=== PATIENT | female | born 1960 | race Caucasian/White ===

== ENCOUNTER → 2020-03-04 | Outpatient (CLI) | payer BC | END | disposition home or self-care (01) | LOC: LABWHC1 09:56 | PROVIDERS: ATTEND Internal Medicine | DX: R50.9 Fever, unspecified (principal); R53.83 Other fatigue; R19.7 Diarrhea, unspecified ==

== ENCOUNTER → 2021-07-22 | Outpatient (CLI) | payer BC ==
--- NOTE | 2021-07-23 13:46 | MM ---
Reason for exam: screening (asymptomatic). Last mammogram was performed 21 years and 7 months ago. History: Patient is postmenopausal and is nulliparous. Family history of breast cancer in sister. Took hormonal contraceptives for 4 years. Physical Findings: A clinical breast exam by your physician is recommended on an annual basis and results should be correlated with mammographic findings. MG Screening Mammo w CAD Bilateral CC and MLO view(s) were taken. Prior study comparison: July 16, 2019, mammogram, performed at [facility]. May 28, 2018, mammogram, performed at [facility]. The breast tissue is heterogeneously dense. This may lower the sensitivity of mammography. Stable benign calcifications left breast. There is no discrete abnormality. No significant changes when compared with prior studies. ASSESSMENT: Benign, BI-RAD 2 RECOMMENDATION: Routine screening mammogram of both breasts in 1 year.
== END | disposition home or self-care (01) ==
LOC: RADMAMWWP 07:42
PROVIDERS: ATTEND Internal Medicine
DX: Z12.31 Encounter for screening mammogram for malignant neoplasm of breast (principal); Z80.3 Family history of malignant neoplasm of breast; Z78.0 Asymptomatic menopausal state
CPT/HCPCS: 77067

== ENCOUNTER → 2021-11-02 | Outpatient (CLI) | payer BC | END | disposition home or self-care (01) | LOC: LABWHC1 13:55 | PROVIDERS: ATTEND Podiatrist Foot & Ankle Surgery | DX: Z01.812 Encounter for preprocedural laboratory examination (principal); Z20.822 Contact with and (suspected) exposure to COVID-19; M20.42 Other hammer toe(s) (acquired), left foot; L97.529 Non-pressure chronic ulcer of other part of left foot with unspecified severity | CPT/HCPCS: U0003; C9803 ==

== ENCOUNTER → 2021-11-18 | Outpatient (CLI) | payer BC ==
--- NOTE | 2021-11-19 05:32 | MR ---
EXAMINATION TYPE: MR shoulder LT wo con DATE OF EXAM: 11/18/2021 COMPARISON: None HISTORY: Left shoulder pain, loss of ROM x 6 months Multiplanar multiecho imaging of the left shoulder without contrast. The glenoid balwinder appear intact. Subscapularis tendon is intact. Biceps tendon is intact. The AC joint is intact. There is small areas of slight increased signal in the supraspinatus tendon o ayleen the top of the humeral head. There is no full-thickness tear. There is no retraction. Humeral hea d is intact. There is no subacromial impingement. AC joint appears intact. There is no evidence of fo shruthi bone destruction. IMPRESSION: There is minimal degenerative signal changes in the supraspinatus tendon. No evidence of full-thickne ss tear
== END | disposition home or self-care (01) ==
LOC: RADMRIMAIN 13:51
PROVIDERS: ATTEND Orthopaedic Surgery Sports Medicine
DX: M67.814 Other specified disorders of tendon, left shoulder (principal)

== ENCOUNTER → 2023-04-11 | Outpatient (CLI) | payer MEDICARE ==
--- NOTE | 2023-04-11 12:04 | BD ---
EXAMINATION TYPE: Axial Bone Density DATE OF EXAM: 04/11/2023 CLINICAL HISTORY: 63 years old Female. ICD-10 CODE: N95.8 MENOPAUSAL AND PERIMENOPAUSAL Height: 69 Weight: 149.0 FRAX RISK QUESTIONS: Alcohol (3 or more units per day): no Family History (Parent hip fracture): no Glucocorticoids (More than 3mos): no (Ex: prednisone, prednisolone, methylprednisolone, dexamethasone, and hydrocortisone). History of Fracture in Adulthood: yes Secondary Osteoporosis: 1. Type 1 Diabetes: no 2. Hyperthyroidism: no 3. Menopause before 45: no 4. Malnutrition: no 5. Chronic liver disease: no Rheumatoid Arthritis: no Current Tobacco Use: no RISK FACTORS HISTORY OF: Hip Fracture (Right/Left): right When: 3 years ago Surgery to Spine/Hip(right/left)/Wrist (right/left): right hip When: 3 years ago Family History of Osteoporosis: yes Active: yes Diet low in dairy products/other sources of calcium: no Postmenopausal woman: yes Lost more than 2 inches in height since high school: no MEDICATIONS: Osteoporosis Medications: fosamax How Lon years Additional Medications: Additional History: EXAM MEASUREMENTS: Bone mineral densitometry was performed using the [employer] System. Bone mineral density as measured about the Lumbar spine is: ----- L1-L4(G/cm2): 0.954 T Score Values are as follows: ----- L1: -2.0 ----- L2: -2.4 ----- L3: -2.0 ----- L4: -1.3 ----- L1-L4: -1.9 Z Score Values are as follows: ----- L1: -0.5 ----- L2: -0.9 ----- L3: -0.5 ----- L4: 0.2 ----- L1-L4: -0.4 Bone mineral density : baseline Bone mineral density about the L hip (g/cm2): 0.801 T Score values are as follows: -----L Neck: -1.3 -----L Total: -1.6 Z Score values are as follows: -----L Neck: 0.2 -----L Total: -0.5 Bone mineral density : baseline FRAX%s: The graph provided illustrates a 13.0% chance for a major osteoporotic fx and a 1.2% chance f or the hips probability for fx in 10 years time. IMPRESSION: Osteopenia (T Score between -2.5 and -1). There is slightly increased risk of fracture and the patient may be considered for treatment. Re-Screen 2-5 years. NOTE: T-SCORE=SD OF THE YOUNG ADULT MEAN.
== END | disposition home or self-care (01) ==
LOC: RADBDWWP 11:23
PROVIDERS: ATTEND Internal Medicine
DX: M85.89 Other specified disorders of bone density and structure, multiple sites (principal); N95.8 Other specified menopausal and perimenopausal disorders
CPT/HCPCS: 77080

== ENCOUNTER 2024-08-11 22:37 | Emergency (ER) | payer MEDICARE ==
[2024-08-11 22:54] VITALS: RESP 16; TEMP 98.2
[2024-08-11 23:27] LABS: Basophils % (A) 0 %; Eosinophils # (A) 0.1 k/uL (0-0.7); Eosinophils % (A) 1 %; HCT 40.8 % (34.0-46.0); HGB 13.7 gm/dL (11.4-16.0); Lymphocytes # (A) 0.7 k/uL (1.0-4.8); Lymphocytes % (A) 9 %; MCHC 33.5 g/dL (31.0-37.0); MCV 89.6 fL (80.0-100.0); Mean Platelet Volume 6.7; Monocytes # (A) 0.3 k/uL (0-1.0); Monocytes % (A) 3 %; Neutrophils # (A) 7.4 k/uL (1.3-7.7); Neutrophils % (A) 87 %; Platelet Count 337 k/uL (150-450); RBC 4.55 m/uL (3.80-5.40); RDW 12.9 % (11.5-15.5); WBC 8.5 k/uL (3.8-10.6)
[2024-08-11 23:28] LABS: Appearance,Urine Clear (Clear); Bilirubin,Urine Negative (Negative); Blood,Urine Negative (Negative); Color,Urine Colorless; Glucose,Urine (UA) Negative (Negative); Ketones,Urine Trace (Negative); Leukocyte Esterase,Urine Negative (Negative); Nitrite,Urine Negative (Negative); Protein,Urine Negative (Negative); Specific Gravity,Urine 1.017 (1.001-1.035); Urobilinogen,Urine <2.0 mg/dL (<2.0)
[2024-08-11 23:44] LABS: ALT 27 U/L (4-34); AST 26 U/L (14-36); African American GFR (CKD) >90 (>60 ml/min/1.73 sqM); Albumin 4.5 g/dL (3.5-5.0); Alkaline Phosphatase 54 U/L (38-126); Amylase 69 U/L (30-110); Anion Gap 9 mmol/L; Blood Urea Nitrogen 21 mg/dL (7-17); Calcium 9.8 mg/dL (8.4-10.2); Carbon Dioxide 27 mmol/L (22-30); Chloride 101 mmol/L (98-107); Glucose 126 mg/dL (74-99); Lipase 103 U/L (23-300); Non-African American GFR(CKD) >90 (>60 ml/min/1.73 sqM); Potassium 4.1 mmol/L (3.5-5.1); Sodium 137 mmol/L (137-145); Total Bilirubin 0.3 mg/dL (0.2-1.3); Total Protein 7.3 g/dL (6.3-8.2)
--- NOTE | 2024-08-12 00:44 | XR ---
EXAM: XR Abdomen, 1 View CLINICAL HISTORY: ITS.REASON XR Reason: abdominal pain TECHNIQUE: Frontal supine view of the abdomen/pelvis. COMPARISON: No previous studies. FINDINGS: Lower thorax: Mild degenerative disc disease of the thoracic lumbar spinal levoscoliosis. Gastrointestinal tract: Moderate to large quantity of stool throughout the colon. Nonspecific bowel gas pattern. Organs: Central calcified uterine fibroid is suggested. Bones/joints: Total right hip prosthesis is noted in place. Vasculature: Pelvic phleboliths are noted. IMPRESSION: 1. Consider constipation. 2. Nonspecific bowel gas pattern.
--- NOTE | 2024-08-12 00:56 | ED ---
Abdominal Pain HPI - General Chief Complaint: Abdominal Pain Stated Complaint: abd pain Time Seen by Provider: 08/12/24 00:45 Source: patient Mode of arrival: ambulatory Limitations: no limitations - History of Present Illness Initial Comments: This patient is a 64-year-old woman who presents to have evaluation of diffuse abdominal pains. She states that they came on yesterday and are worse today. She states the pain does seem to come in waves. It will be present in different parts of the abdomen at different times. Patient has not noted change in urination. Last bowel movement was days ago. No bloody or tarry stools. No vomiting but occasional nausea. MD Complaint: abdominal pain Onset/Timin -: days(s) Location: diffuse Radiation: none Severity: moderate Quality: cramping, aching Consistency: colicky Improves With: nothing Worsens With: nothing Associated Symptoms: denies other symptoms - Related Data Allergies Allergy/AdvReac Type Severity Reaction Status Date / Time sulfamethoxazole Allergy Rash/Hives Verified 08/11/24 22:50 [From Bactrim] trimethoprim [From Bactrim] Allergy Rash/Hives Verified 08/11/24 22:50 Review of Systems ROS Statement: Those systems with pertinent positive or pertinent negative responses have been documented in the HPI. ROS Other: All systems not noted in ROS Statement are negative. Constitutional: Denies: fever, chills Respiratory: Denies: cough, dyspnea Cardiovascular: Denies: chest pain, palpitations Gastrointestinal: Reports: abdominal pain. Denies: nausea, vomiting, diarrhea, melena, hematochezia Genitourinary: Denies: dysuria, frequency, hematuria Musculoskeletal: Denies: back pain Skin: Denies: rash Neurological: Denies: headache, weakness, numbness Past Medical History Past Medical History: Hyperlipidemia History of Any Multi-Drug Resistant Organisms: None Reported Past Surgical History: Joint Replacement Additional Past Surgical History / Comment(s): hip Past Psychological History: No Psychological Hx Reported Smoking Status: Never smoker Past Alcohol Use History: Occasional Past Drug Use History: None Reported General Exam Limitations: no limitations General appearance: alert, in no apparent distress Head exam: Present: atraumatic, normocephalic Eye exam: Present: normal appearance. Absent: scleral icterus, conjunctival injection ENT exam: Present: normal oropharynx Neck exam: Present: normal inspection Respiratory exam: Present: normal lung sounds bilaterally. Absent: respiratory distress, wheezes, rales, rhonchi, stridor, accessory muscle use Cardiovascular Exam: Present: regular rate, normal rhythm, normal heart sounds. Absent: systolic murmur, diastolic murmur, rubs, gallop GI/Abdominal exam: Present: soft. Absent: distended, tenderness, guarding, rebound, rigid, mass, pulsatile mass, hernia Extremities exam: Present: normal inspection, normal capillary refill. Absent: pedal edema, calf tenderness Back exam: Present: normal inspection. Absent: CVA tenderness (R), CVA tenderness (L) Neurological exam: Present: alert Skin exam: Present: warm, dry, intact, normal color. Absent: rash Course Vital Signs 08/11/24 08/12/24 22:51 01:14 Temperature 98.2 F Pulse Rate 92 73 Respiratory 16 16 Rate Blood Pressure 136/78 134/78 O2 Sat by Pulse 96 98 Oximetry Medical Decision Making - Medical Decision Making The patient had KUB x-ray which I interpreted as showing no acute free air or obstruction. There does appear to be moderate amount of stool Was pt. sent in by a medical professional or institution (, PA, FLIGHT OPERATIONS SPECIALIST, urgent care, hospital, or long term...) When possible be specific @ -[No] Did you speak to anyone other than the patient for history (EMS, parent, family, police, friend...)? What history was obtained from this source @ -[No] Did you review nursing and triage notes (agree or disagree)? Why? @ -[I reviewed and agree with nursing and triage notes] Were old charts reviewed (outside hosp., previous admission, EMS record, old EKG, old radiological studies, urgent care reports/EKG's, long term records)? Report findings @ -[No old charts were reviewed] Differential Diagnosis (chest pain, altered mental status, abdominal pain women, abdominal pain men, vaginal bleeding, weakness, fever, dyspnea, syncope, headache, dizziness, GI bleed, back pain, seizure, CVA, palpatations, mental health, musculoskeletal)? @ -[Differential Abdominal Pain Women: Appendicitis, Cholecystitis, diverticulosis, ischemic bowel, pancreatitis, hepatitis, UTI, gastroenteritis, AAA, incarcerated hernia, bowel obstruction, constipation, inflammatory bowel, hepatitis, peptic ulcer disease, splenic infarction, perforated viscus, vulvitis, ovarian torsion, PID, kidney stone, placenta abruption, this is not meant to be an all-inclusive list EKG interpreted by me (3pts min.). @ -[As above] X-rays interpreted by me (1pt min.). @ -[I interpreted as above CT interpreted by me (1pt min.). @ -[None done] U/S interpreted by me (1pt. min.). @ -[None done] What testing was considered but not performed or refused? (CT, X-rays, U/S, labs)? Why? @ -[None] What meds were considered but not given or refused? Why? @ -[None] Did you discuss the management of the patient with other professionals (professionals i.e. , PA, FLIGHT OPERATIONS SPECIALIST, lab, RT, psych nurse, web content & social media manager, earthmoving plant operator, teacher, special technical operations officer, hospice case manager)? Give summary @ -[No] Was smoking cessation discussed for >3mins.? @ -[No] Was critical care preformed (if so, how long)? @ -[No] Were there social determinants of health that impacted care today? How? (Homelessness, low income, unemployed, alcoholism, drug addiction, transportation, low edu. Level, literacy, decrease access to med. care, prison, rehab)? @ -[No] Was there de-escalation of care discussed even if they declined (Discuss DNR or withdrawal of care, Hospice)? DNR status @ -[No] What co-morbidities impacted this encounter? (DM, HTN, Smoking, COPD, CAD, Cancer, CVA, ARF, Chemo, Hep., AIDS, mental health diagnosis, sleep apnea, morbid obesity)? @ -[None] Was patient admitted / discharged? Hospital course, mention meds given and route, prescriptions, significant lab abnormalities, going to OR and other pertinent info. @ -[Patient is 64-year-old woman with 1 day of abdominal pain. Her exam is benign with no suggestion of acute surgical condition. X-ray does appear to show a moderate amount of stool and we discussed different options. Patient would like to try magnesium citrate at home. She is given return parameters. We discussed appropriate further care should magnesium citrate not resolve her condition. Undiagnosed new problem with uncertain prognosis? @ -[No] Drug Therapy requiring intensive monitoring for toxicity (Heparin, Nitro, Insulin, Cardizem)? @ -[No] Were any procedures done? @ -[No] Diagnosis/symptom? @ -[Acute abdominal pain Possible constipation Acute, or Chronic, or Acute on Chronic? @ -Acute Uncomplicated (without systemic symptoms) or Complicated (systemic symptoms)? @ -[default] Side effects of treatment? @ -[No] Exacerbation, Progression, or Severe Exacerbation? @ -[No] Poses a threat to life or bodily function? How? (Chest pain, [place], [place], pneumonia, PE, COPD, DKA, ARF, appy, cholecystitis, CVA, Diverticulitis, Homicidal, Suicidal, threat to staff... and all critical care pts) @ -[No] - Lab Data Result diagrams: 08/11/24 23:16 08/11/24 23:16 Lab Results 08/11/24 08/11/24 08/11/24 Range/Units 23:16 23:16 23:16 WBC 8.5 (3.8-10.6) k/uL RBC 4.55 (3.80-5.40) m/uL Hgb 13.7 (11.4-16.0) gm/dL Hct 40.8 (34.0-46.0) % MCV 89.6 (80.0-100.0) fL MCH 30.0 (25.0-35.0) pg MCHC 33.5 (31.0-37.0) g/dL RDW 12.9 (11.5-15.5) % Plt Count 337 (150-450) k/uL MPV 6.7 Neutrophils % 87 % Lymphocytes % 9 % Monocytes % 3 % Eosinophils % 1 % Basophils % 0 % Neutrophils # 7.4 (1.3-7.7) k/uL Lymphocytes # 0.7 L (1.0-4.8) k/uL Monocytes # 0.3 (0-1.0) k/uL Eosinophils # 0.1 (0-0.7) k/uL Basophils # 0.0 (0-0.2) k/uL Sodium 137 (137-145) mmol/L Potassium 4.1 (3.5-5.1) mmol/L Chloride 101 (98-107) mmol/L Carbon Dioxide 27 (22-30) mmol/L Anion Gap 9 mmol/L BUN 21 H (7-17) mg/dL Creatinine 0.48 L (0.52-1.04) mg/dL Est GFR (CKD-EPI)AfAm >90 (>60 ml/min/1.73 sqM) Est GFR (CKD-EPI)NonAf >90 (>60 ml/min/1.73 sqM) Glucose 126 H (74-99) mg/dL Plasma Lactic Acid Kev (0.7-2.0) mmol/L Calcium 9.8 (8.4-10.2) mg/dL Total Bilirubin 0.3 (0.2-1.3) mg/dL AST 26 (14-36) U/L ALT 27 (4-34) U/L Alkaline Phosphatase 54 (38-126) U/L Total Protein 7.3 (6.3-8.2) g/dL Albumin 4.5 (3.5-5.0) g/dL Amylase 69 (30-110) U/L Lipase 103 (23-300) U/L Urine Color Colorless Urine Appearance Clear (Clear) Urine pH 7.0 (5.0-8.0) Ur Specific [place] 1.017 (1.001-1.035) Urine Protein Negative (Negative) Urine Glucose (UA) Negative (Negative) Urine Ketones Trace H (Negative) Urine Blood Negative (Negative) Urine Nitrite Negative (Negative) Urine Bilirubin Negative (Negative) Urine Urobilinogen <2.0 (<2.0) mg/dL Ur Leukocyte Esterase Negative (Negative) 08/11/24 Range/Units 23:16 WBC (3.8-10.6) k/uL RBC (3.80-5.40) m/uL Hgb (11.4-16.0) gm/dL Hct (34.0-46.0) % MCV (80.0-100.0) fL MCH (25.0-35.0) pg MCHC (31.0-37.0) g/dL RDW (11.5-15.5) % Plt Count (150-450) k/uL MPV Neutrophils % % Lymphocytes % % Monocytes % % Eosinophils % % Basophils % % Neutrophils # (1.3-7.7) k/uL Lymphocytes # (1.0-4.8) k/uL Monocytes # (0-1.0) k/uL Eosinophils # (0-0.7) k/uL Basophils # (0-0.2) k/uL Sodium (137-145) mmol/L Potassium (3.5-5.1) mmol/L Chloride (98-107) mmol/L Carbon Dioxide (22-30) mmol/L Anion Gap mmol/L BUN (7-17) mg/dL Creatinine (0.52-1.04) mg/dL Est GFR (CKD-EPI)AfAm (>60 ml/min/1.73 sqM) Est GFR (CKD-EPI)NonAf (>60 ml/min/1.73 sqM) Glucose (74-99) mg/dL Plasma Lactic Acid Kev 0.8 (0.7-2.0) mmol/L Calcium (8.4-10.2) mg/dL Total Bilirubin (0.2-1.3) mg/dL AST (14-36) U/L ALT (4-34) U/L Alkaline Phosphatase (38-126) U/L Total Protein (6.3-8.2) g/dL Albumin (3.5-5.0) g/dL Amylase (30-110) U/L Lipase (23-300) U/L Urine Color Urine Appearance (Clear) Urine pH (5.0-8.0) Ur Specific [place] (1.001-1.035) Urine Protein (Negative) Urine Glucose (UA) (Negative) Urine Ketones (Negative) Urine Blood (Negative) Urine Nitrite (Negative) Urine Bilirubin (Negative) Urine Urobilinogen (<2.0) mg/dL Ur Leukocyte Esterase (Negative) Disposition Clinical Impression: Abdominal pain Disposition: HOME SELF-CARE Condition: Good Instructions (If sedation given, give patient instructions): Abdominal Pain (ED) Is patient prescribed a controlled substance at d/c from ED?: No Referrals: Kat Wen MD [Primary Care Provider] - 1-2 days
[2024-08-12] MEDS: MAGNESIUM CITRATE 296 ML BOTTLE PO ONE (01:12)
[2024-08-12 01:20] VITALS: BP 134/78; PULSE 73
== END 2024-08-12 01:14 | disposition home or self-care (01) ==
LOC: EC 22:37
DX: R10.84 Generalized abdominal pain (principal); Z88.2 Allergy status to sulfonamides; Z88.1 Allergy status to other antibiotic agents
CPT/HCPCS: 36415; 74018; 80053; 81003; 82150; 83605; 83690; 85025; 99284

== ENCOUNTER 2024-09-28 10:38 | Emergency (ER) | payer MEDICARE ==
[2024-09-28 11:18] VITALS: RESP 18
--- NOTE | 2024-09-28 11:59 | ED ---
Lower Extremity Injury HPI - General Source: patient, RN notes reviewed Mode of arrival: ambulatory Limitations: no limitations - History of Present Illness MD Complaint: foot injury <Carter Salcedo - Last Filed: 09/28/24 11:57> <Kamar Duffy - Last Filed: 09/28/24 14:15> - General Chief Complaint: Extremity Injury, Lower Stated Complaint: R foot pain Time Seen by Provider: 09/28/24 10:55 - History of Present Illness Initial Comments: Quick note: This is a 64-year-old female presenting with right foot pain (12/09). Patient states pain is on the inner and bottom aspect of her right foot. Endorses difficulty/pain with walking requiring a walker, which she does not normally use. States pain occurs with weightbearing and while supine in bed. Denies recent trauma or known cause for foot pain. Endorses use of ibuprofen with minimal relief. (Carter Salcedo) Dictation was produced using [employer] dictation software. please excuse any grammatical, word or spelling errors. Chief Complaint: 64-year-old female right foot pain History of Present Illness: Patient is a 64-year-old female with acute on chronic right foot pain. States that over the last several days she has noticed worsening pain to the right medial part of her right foot. She has had pain in this part of her foot before. Denies any inciting event. No trauma. Denies any surgical history to the right foot. Denies any fever, chills or night sweats. She has seen a edger hand several years ago. The ROS documented in this emergency department record has been reviewed and confirmed by me. Those systems with pertinent positive or negative responses have been documented in the HPI. All other systems are other negative and/or noncontributory. (Kamar Duffy) - Related Data Previous Rx's Medication Instructions Recorded HYDROcodone/APAP 5-325MG [Panther Burn 1 tab PO Q6HR PRN 3 Days #12 tab 09/28/24 5-325] Allergies Allergy/AdvReac Type Severity Reaction Status Date / Time sulfamethoxazole Allergy Rash/Hives Verified 08/11/24 22:50 [From Bactrim] trimethoprim [From Bactrim] Allergy Rash/Hives Verified 08/11/24 22:50 Review of Systems ROS Other: All systems not noted in ROS Statement are negative. <Carter Salcedo - Last Filed: 09/28/24 11:57> ROS Other: All systems not noted in ROS Statement are negative. <Kamar Duffy - Last Filed: 09/28/24 14:15> ROS Statement: Those systems with pertinent positive or pertinent negative responses have been documented in the HPI. Past Medical History Past Medical History: Hyperlipidemia History of Any Multi-Drug Resistant Organisms: None Reported Past Surgical History: Joint Replacement Additional Past Surgical History / Comment(s): hip Past Psychological History: No Psychological Hx Reported Smoking Status: Never smoker Past Alcohol Use History: Occasional Past Drug Use History: None Reported <Carter Salcedo - Last Filed: 09/28/24 11:57> General Exam Limitations: no limitations <Carter Salcedo - Last Filed: 09/28/24 11:57> <Kamar Duffy - Last Filed: 09/28/24 14:15> - General Exam Comments Initial Comments: Visual Physical Exam Vital signs reviewed General: Well-appearing, nontoxic, no acute distress. Head: Normocephalic, atraumatic Eyes: PERRLA, EOMI ENT: Airway patent Chest: Nonlabored breathing Skin: No visual rash, normal skin tone Neuro: Alert and oriented 3 Musculoskeletal: No gross abnormalities (Carter Salcedo) General: Well-appearing, nontoxic, no acute distress. Head: Normocephalic, atraumatic Eyes: PERRLA, EOMI ENT: Airway patent Chest: Nonlabored breathing Skin: No visual rash, normal skin tone Neuro: Alert and oriented 3 Musculoskeletal: No gross abnormalities Right foot: No gross deformity, mild palpatory tenderness medial arch of the foot (Kamar Duffy) Course Vital Signs 09/28/24 11:15 Temperature 97.9 F Pulse Rate 71 Respiratory 18 Rate Blood Pressure 146/75 O2 Sat by Pulse 98 Oximetry Medical Decision Making <Carter Salcedo - Last Filed: 09/28/24 11:57> <Kamar Duffy - Last Filed: 09/28/24 14:15> - Medical Decision Making I completed the quick note portion of this chart signed KE Osborne (Carter Salcedo) Was pt. sent in by a medical professional or institution (, PA, EXTRACT MIXER, urgent care, hospital, or group home...) When possible be specific @ -No Did you speak to anyone other than the patient for history (EMS, parent, family, police, friend...)? What history was obtained from this source @ -No Did you review nursing and triage notes (agree or disagree)? Why? @ -I reviewed and agree with nursing and triage notes Were old charts reviewed (outside hosp., previous admission, EMS record, old EKG, old radiological studies, urgent care reports/EKG's, group home records)? Report findings @ -No old charts were reviewed Differential Diagnosis (chest pain, altered mental status, abdominal pain women, abdominal pain men, vaginal bleeding, musculoskeletal, weakness, fever, dyspnea, syncope, headache, dizziness, GI bleed, back pain, seizure, CVA, palpatations, mental health)? @ -, Foot strain, foot contusion EKG interpreted by me (3pts min.). @ -None done X-rays interpreted by me (1pt min.). @ -Right foot x-ray shows no acute skull fractures or acute processes CT interpreted by me (1pt min.). @ -None done U/S interpreted by me (1pt. min.). @ -None done What testing was considered but not performed or refused? (CT, X-rays, U/S, labs)? Why? @ -None What meds were considered but not given or refused? Why? @ -None Was smoking cessation discussed for >3mins.? @ -No Were there social determinants of health that impacted care today? How? (Homelessness, low income, unemployed, alcoholism, drug addiction, transportation, low edu. Level, literacy, decrease access to med. care, residential, rehab)? @ -No Was there de-escalation of care discussed even if they declined (Discuss DNR or withdrawal of care, Hospice)? DNR status @ -No What co-morbidities impacted this encounter? (DM, HTN, Smoking, COPD, CAD, Cancer, CVA, ARF, Chemo, Hep., AIDS, mental health diagnosis, sleep apnea, morbid obesity)? @ -Chronic foot issues Was patient admitted / discharged? Hospital course, mention meds given and route, prescriptions, significant lab abnormalities, going to OR and other perti nent info. @ -64-year-old female with acute on chronic right foot pain. Vital signs stable. Patient has pain over the medial surface of the foot. X-ray is unremarkable. Patient given analgesics and referral to podiatry and foot and ankle specialist. Did you discuss the management of the patient with other professionals (professionals i.e. , PA, EXTRACT MIXER, lab, RT, psych nurse, social media developer, earth boring machine operator, teacher, chief administrative officer, keycase assembler)? Give summary @ -No Was critical care preformed (if so, how long)? @ -No Undiagnosed new problem with uncertain prognosis? @ -No Drug Therapy requiring intensive monitoring for toxicity (Heparin, Nitro, Insulin, Cardizem)? @ -No Were any procedures done? @ -No Diagnosis/symptom? Acute, or Chronic, or Acute on Chronic? Uncomplicated (without systemic symptoms) or Complicated (systemic symptoms)? @ -Foot strain Side effects of treatment? @ -No Exacerbation, Progression, or Severe Exacerbation? @ -No Poses a threat to life or bodily function? How? (Chest pain, [place], [place], pneumonia, PE, COPD, DKA, ARF, appy, cholecystitis, CVA, Diverticulitis, Homicidal, Suicidal, threat to staff... and all critical care pts) @ -yes (Kamar Duffy) Disposition <Carter Salcedo - Last Filed: 09/28/24 11:57> Is patient prescribed a controlled substance at d/c from ED?: Yes If prescribed controlled substance>3 days was MAPS reviewed?: Prescribed <3 Days Time of Disposition: 14:15 <Kamar Duffy - Last Filed: 09/28/24 14:15> Clinical Impression: Foot pain Disposition: HOME SELF-CARE Condition: Fair Prescriptions: HYDROcodone/APAP 5-325MG [Panther Burn 5-325] 1 tab PO Q6HR PRN 3 Days #12 tab PRN Reason: Severe Pain Referrals: Kat Wen MD [Primary Care Provider] - 1-2 days Nelly Peña DPM [STAFF PHYSICIAN] - 1-2 days Po Grijalva DPM [STAFF PHYSICIAN] - 1-2 days Rubens Sullivan MD [Medical Doctor] - 1-2 days
--- NOTE | 2024-09-28 12:31 | XR ---
EXAMINATION TYPE: XR foot complete RT DATE OF EXAM: 09/28/2024 12:27 PM COMPARISON: None CLINICAL INDICATION: Female, 64 years old with history of Right foot pain, medial and plantar aspect; , pain TECHNIQUE: XR foot complete RT examined in the AP, oblique, and lateral projections. FINDINGS: No evidence of any acute osseous pathology. Multifocal degeneration changes throughout the joints of the foot with osteophyte formation and joint space narrowing. Calcaneal plantar spurring is present. IMPRESSION: 1. No evidence of acute fracture. 2. Multifocal degeneration changes throughout the joints of the foot. [facility], , 09/28/2024 12:29 PM
[2024-09-28 14:22] VITALS: BP 140/78; PULSE 87; TEMP 97.8
== END 2024-09-28 14:22 | disposition home or self-care (01) ==
LOC: EC 10:38
DX: S96.911A Strain of unspecified muscle and tendon at ankle and foot level, right foot, initial encounter (principal); G89.29 Other chronic pain; Z88.1 Allergy status to other antibiotic agents; Z88.2 Allergy status to sulfonamides; X50.1XXA Overexertion from prolonged static or awkward postures, initial encounter; Y93.01 Activity, walking, marching and hiking
CPT/HCPCS: 99283

== ENCOUNTER → 2024-10-04 | Outpatient (CLI) | payer MEDICARE ==
--- NOTE | 2024-10-04 17:44 | MM ---
Reason for Exam: Screening (asymptomatic). Last mammogram was performed 1 year(s) and 6 month(s) ago. Patient History: Menarche at age 11. Patient has no children. Postmenopausal. Patient used Hormonal Contraceptives for 4 years. Maternal aunt had breast cancer. Risk Values: Corina 5 year model risk: 1.9%. NCI Lifetime model risk: 6.7%. Prior Study Comparison: 07/16/2019 Screening Mammogram, [facility]. 07/22/2021 Bilateral Screening Mammogram, [facility]. 04/20/2023 Bilateral MG 3D screening mammo w/cad, [facility]. Tissue Density: The breasts are heterogeneously dense, which may obscure small masses. Findings: Analyzed By CAD. The pattern is symmetrical. No significant interval change. Benign spherical calcifications within the left breast. No suspicious groups of microcalcifications, spiculated or lobular masses, architectural distortion or other secondary signs of malignancy are mammographically apparent. Overall Assessment: Benign, BI-RAD 2 Management: Screening Mammogram of both breasts in 1 year. A negative mammogram report should not preclude additional follow up of suspicious palpable abnormalities. Patient should continue monthly self breast exam. A clinical breast exam by your physician is recommended on an annual basis and results should be correlated with mammographic findings. Note on Corina scores and lifetime risk: 1. A Corina score greater than 3% is considered moderate risk. If this is the case, consider specialist referral to assess eligibility for a risk reducing agent. 2. If overall lifetime risk for the development of breast cancer is 20% or higher, the patient may qualify for future screening with alternating mammogram and breast MRI. [facility], , 10/04/2024 5:41 PM. Electronically signed and approved by: David Mccullough D.O. Radiologis
== END | disposition home or self-care (01) ==
LOC: RADMAMWWP 14:52
PROVIDERS: ATTEND Internal Medicine
DX: Z12.31 Encounter for screening mammogram for malignant neoplasm of breast (principal); Z78.0 Asymptomatic menopausal state; Z80.3 Family history of malignant neoplasm of breast; R92.333 Mammographic heterogeneous density, bilateral breasts
CPT/HCPCS: 77063; 77067

== ENCOUNTER 2024-12-17 16:32 | Inpatient (IN) | payer MEDICARE ==
--- NOTE | 2024-12-17 17:37 | ED ---
General Adult HPI - General Chief complaint: Abdominal Pain Stated complaint: abd pain Time Seen by Provider: 12/17/24 16:47 Source: patient, RN notes reviewed Mode of arrival: ambulatory Limitations: no limitations - History of Present Illness Initial comments: 64-year-old female presents to the emergency department for evaluation of abdominal pain. Patient states that this started last night. She states that at that time the pain was a 10 out of 10 in the right lower quadrant. She states that she is unable to describe the pain. Reports decreased appetite. Denies any fever, chills. Admits to nausea and vomiting. She reports a normal bowel movement last night. Denies any prior abdominal surgeries. - Related Data Home Medications Medication Instructions Recorded Confirmed Alendronate Sodium [Fosamax] 70 mg PO SMALLWOOD 12/17/24 12/17/24 Atorvastatin [Lipitor] 10 mg PO DAILY 12/17/24 12/17/24 Meloxicam [Mobic] 7.5 mg PO BID 12/17/24 12/17/24 Allergies Allergy/AdvReac Type Severity Reaction Status Date / Time sulfamethoxazole Allergy Rash/Hives Verified 12/17/24 18:33 [From Bactrim] on belly trimethoprim [From Bactrim] Allergy Rash/Hives Verified 12/17/24 18:33 on belly Review of Systems ROS Statement: Those systems with pertinent positive or pertinent negative responses have been documented in the HPI. ROS Other: All systems not noted in ROS Statement are negative. Past Medical History Past Medical History: Hyperlipidemia History of Any Multi-Drug Resistant Organisms: None Reported Past Surgical History: Joint Replacement Additional Past Surgical History / Comment(s): hip Past Psychological History: No Psychological Hx Reported Smoking Status: Never smoker Past Alcohol Use History: Occasional Past Drug Use History: None Reported General Exam Limitations: no limitations General appearance: alert, in no apparent distress Head exam: Present: atraumatic, normocephalic, normal inspection Eye exam: Present: normal appearance, PERRL, EOMI. Absent: scleral icterus, conjunctival injection, periorbital swelling ENT exam: Present: normal exam, mucous membranes moist Respiratory exam: Present: normal lung sounds bilaterally. Absent: respiratory distress, wheezes, rales, rhonchi, stridor Cardiovascular Exam: Present: regular rate, normal rhythm, normal heart sounds. Absent: systolic murmur, diastolic murmur, rubs, gallop, clicks GI/Abdominal exam: Present: distended, tenderness (Right lower quadrant), normal bowel sounds. Absent: guarding, rebound, rigid Extremities exam: Present: normal inspection, full ROM, normal capillary refill. Absent: tenderness, pedal edema, joint swelling, calf tenderness Neurological exam: Present: alert, oriented X3 Psychiatric exam: Present: normal affect, normal mood Skin exam: Present: warm, dry, intact, normal color. Absent: rash Course Vital Signs 12/17/24 12/17/24 16:40 19:24 Temperature 97.8 F Pulse Rate 68 79 Respiratory 17 17 Rate Blood Pressure 153/83 140/69 O2 Sat by Pulse 96 98 Oximetry Medical Decision Making - Medical Decision Making Was pt. sent in by a medical professional or institution (, PA, THERAPEUTIC ACTIVITIES SERVICES WORKER, urgent care, hospital, or senior living...) When possible be specific @ -No Did you speak to anyone other than the patient for history (EMS, parent, family, police, friend...)? What history was obtained from this source @ -No Did you review nursing and triage notes (agree or disagree)? Why? @ -I reviewed and agree with nursing and triage notes Were old charts reviewed (outside hosp., previous admission, EMS record, old EKG, old radiological studies, urgent care reports/EKG's, senior living records)? Report findings @ -No old charts were reviewed Differential Diagnosis (chest pain, altered mental status, abdominal pain women, abdominal pain men, vaginal bleeding, weakness, fever, dyspnea, syncope, headache, dizziness, GI bleed, back pain, seizure, CVA, palpatations, mental health, musculoskeletal)? @ -Differential Abdominal Pain Women: Appendicitis, Cholecystitis, diverticulosis, ischemic bowel, pancreatitis, hepatitis, UTI, gastroenteritis, AAA, incarcerated hernia, bowel obstruction, constipation, inflammatory bowel, hepatitis, peptic ulcer disease, splenic infarction, perforated viscus, vulvitis, ovarian torsion, PID, kidney stone, placenta abruption, this is not meant to be an all-inclusive list EKG interpreted by me (3pts min.). @ -None X-rays interpreted by me (1pt min.). @ -None done CT interpreted by me (1pt min.). @ -CT abdomen pelvis was obtained revealing findings suspicious for cecal volvulus with right lower quadrant fat stranding. No free air visualized. U/S interpreted by me (1pt. min.). @ -None done What testing was considered but not performed or refused? (CT, X-rays, U/S, labs)? Why? @ -None What meds were considered but not given or refused? Why? @ -None Did you discuss the management of the patient with other professionals (professionals i.e. DrMyrna, PA, THERAPEUTIC ACTIVITIES SERVICES WORKER, lab, RT, psych nurse, social media editor, motion picture camera lens technician, teacher, finance officer, lead case manager)? Give summary @ -Case discussed with general surgery, Dr. Mao who is going to evaluated the patient Was smoking cessation discussed for >3mins.? @ -No Was critical care preformed (if so, how long)? @ -No Were there social determinants of health that impacted care today? How? (Homelessness, low income, unemployed, alcoholism, drug addiction, transportation, low edu. Level, literacy, decrease access to med. care, alf, rehab)? @ -No Was there de-escalation of care discussed even if they declined (Discuss DNR or withdrawal of care, Hospice)? DNR status @ -No What co-morbidities impacted this encounter? (DM, HTN, Smoking, COPD, CAD, Ca ncer, CVA, ARF, Chemo, Hep., AIDS, mental health diagnosis, sleep apnea, morbid obesity)? @ -None Was patient admitted / discharged? Hospital course, mention meds given and route, prescriptions, significant lab abnormalities, going to OR and other pertinent info. @ -Admitted. Patient presented to the emergency department for evaluation of abdominal pain. Patient reports that this started last night. Laboratory studies obtained revealing no significant leukocytosis.CMP unactionable, no significant lactic acidosis. CT abdomen pelvis shows findings concerning for a cecal volvulus. There is right lower quadrant fat stranding. Patient administered medication for pain control, nausea and IV fluids in the ED. The case was discussed with general surgery, Dr. Mao who is going to evaluate the patient. Patient made n.p.o. and going to the OR. Patient admitted to general surgery with medicine on consult. Case discussed with Dr. Garcia Undiagnosed new problem with uncertain prognosis? @ -No Drug Therapy requiring intensive monitoring for toxicity (Heparin, Nitro, Insulin, Cardizem)? @ -No Were any procedures done? @ -No Diagnosis/symptom? @ -Cecal volvulus Acute, or Chronic, or Acute on Chronic? @ -acute Uncomplicated (without systemic symptoms) or Complicated (systemic symptoms)? @ -complicated Side effects of treatment? @ -No Exacerbation, Progression, or Severe Exacerbation? @ -No Poses a threat to life or bodily function? How? (Chest pain, USA, CO, pneumonia, PE, COPD, DKA, ARF, appy, cholecystitis, CVA, Diverticulitis, Homicidal, Suicidal, threat to staff... and all critical care pts) @ -yes cecal volvulus - Lab Data Result diagrams: 12/18/24 03:59 12/18/24 03:59 Lab Results 12/17/24 12/17/24 12/17/24 Range/Units 17:28 17:28 19:05 WBC 7.9 (3.8-10.6) k/uL RBC 4.84 (3.80-5.40) m/uL Hgb 13.9 (11.4-16.0) gm/dL Hct 42.1 (34.0-46.0) % MCV 86.9 (80.0-100.0) fL MCH 28.7 (25.0-35.0) pg MCHC 33.0 (31.0-37.0) g/dL RDW 13.3 (11.5-15.5) % Plt Count 238 (150-450) k/uL MPV 6.9 Neutrophils % 82 % Lymphocytes % 10 % Monocytes % 5 % Eosinophils % 1 % Basophils % 0 % Neutrophils # 6.5 (1.3-7.7) k/uL Lymphocytes # 0.8 L (1.0-4.8) k/uL Monocytes # 0.4 (0-1.0) k/uL Eosinophils # 0.1 (0-0.7) k/uL Basophils # 0.0 (0-0.2) k/uL Sodium 137 (137-145) mmol/L Potassium 3.6 (3.5-5.1) mmol/L Chloride 101 (98-107) mmol/L Carbon Dioxide 25 (22-30) mmol/L Anion Gap 11 mmol/L BUN 25 H (7-17) mg/dL Creatinine 0.60 (0.52-1.04) mg/dL Est GFR (CKD-EPI)AfAm >90 (>60 ml/min/1.73 sqM) Est GFR (CKD-EPI)NonAf >90 (>60 ml/min/1.73 sqM) Glucose 122 H (74-99) mg/dL Plasma Lactic Acid Kev 0.8 (0.7-2.0) mmol/L Calcium 9.7 (8.4-10.2) mg/dL Total Bilirubin 0.6 (0.2-1.3) mg/dL AST 31 (14-36) U/L ALT 30 (4-34) U/L Alkaline Phosphatase 55 (38-126) U/L Total Protein 7.4 (6.3-8.2) g/dL Albumin 4.8 (3.5-5.0) g/dL Amylase 79 (30-110) U/L Lipase 165 (23-300) U/L Disposition Clinical Impression: Cecal volvulus Disposition: ADMITTED IP TO THIS HOSP Condition: Stable Is patient prescribed a controlled substance at d/c from ED?: No
[2024-12-17 17:39] LABS: Basophils % (A) 0 %; Eosinophils # (A) 0.1 k/uL (0-0.7); Eosinophils % (A) 1 %; HCT 42.1 % (34.0-46.0); HGB 13.9 gm/dL (11.4-16.0); Lymphocytes # (A) 0.8 k/uL (1.0-4.8); Lymphocytes % (A) 10 %; MCH 28.7 pg (25.0-35.0); MCV 86.9 fL (80.0-100.0); Mean Platelet Volume 6.9; Monocytes # (A) 0.4 k/uL (0-1.0); Monocytes % (A) 5 %; Neutrophils # (A) 6.5 k/uL (1.3-7.7); Neutrophils % (A) 82 %; Platelet Count 238 k/uL (150-450); RBC 4.84 m/uL (3.80-5.40); RDW 13.3 % (11.5-15.5); WBC 7.9 k/uL (3.8-10.6)
[2024-12-17 17:51] LABS: ALT 30 U/L (4-34); AST 31 U/L (14-36); African American GFR (CKD) >90 (>60 ml/min/1.73 sqM); Albumin 4.8 g/dL (3.5-5.0); Alkaline Phosphatase 55 U/L (38-126); Amylase 79 U/L (30-110); Anion Gap 11 mmol/L; Blood Urea Nitrogen 25 mg/dL (7-17); Calcium 9.7 mg/dL (8.4-10.2); Carbon Dioxide 25 mmol/L (22-30); Chloride 101 mmol/L (98-107); Glucose 122 mg/dL (74-99); Lipase 165 U/L (23-300); Non-African American GFR(CKD) >90 (>60 ml/min/1.73 sqM); Potassium 3.6 mmol/L (3.5-5.1); Sodium 137 mmol/L (137-145); Total Bilirubin 0.6 mg/dL (0.2-1.3); Total Protein 7.4 g/dL (6.3-8.2)
--- NOTE | 2024-12-17 18:57 | CT ---
EXAMINATION TYPE: CT abdomen pelvis w con DATE OF EXAM: 12/17/2024 6:38 PM COMPARISON: None available. CLINICAL INDICATION: Female, 64 years old with history of RLQ pain; RLQ abdominal pain TECHNIQUE: Axial CT abdomen pelvis w con;Sagittal and coronal reformats were created on a separate w orkstation. Contrast used:100 mL of Isovue 300 with IV Contrast, (none if empty) Oral contrast used: without Oral Contrast (none if empty) CT DLP: 586.2 mGycm, Automated exposure control for dose reduction was used. FINDINGS: Partially visualized lower chest demonstrates no acute pathology. Liver unremarkable. Gallbladder not well visualized. Spleen normal in size and morphology. No suspicious adrenal gland nodule. Kidneys e nhance medically bilaterally. Simple cyst in the superior left kidney. No hydronephrosis. Pancreas un remarkable. No abnormal biliary ductal dilatation. Abdominal aorta is normal in caliber. Celiac artery and SMA without evidence of flow-limiting stenosi s. No significant free air or free fluid in the abdomen or pelvis. Markedly dilated large bowel in th e right lower quadrant with whirled appearance of the adjacent mesentery (series 3 image [id number]). Larg e bowel measures up to 10 cm in greatest diameter in this region. There is right lower quadrant mesen teric inflammation/fat stranding. No evidence of small bowel obstruction. Large volume diffuse coloni c stool burden. Urinary bladder unremarkable. Uterus not well evaluated given extensive streak artifact from right hi p arthroplasty. Multilevel lumbosacral spine degenerative changes. IMPRESSION: Findings highly concerning for cecal volvulus with twisting of the adjacent mesentery and associated right lower quadrant mesenteric inflammation. No evidence of free air/pneumoperitoneum to suggest per foration at this time. Recommend surgical consultation. *Critical results were discussed with Ondina Zamora PA-C at 6:47 PM on 12/17/2024. [facility], Workstation: [email or web address], 12/17/2024 6:55 PM
[2024-12-17] MEDS: SODIUM CHLORIDE 0.9% 1,000 ML IV ONE (19:17)
[2024-12-17] MEDS: KETOROLAC 15 MG/ML 1 ML VIAL IVP STA (19:19)
[2024-12-17] MEDS: ONDANSETRON 4 MG/2 ML VIAL IVP STA (19:19)
[2024-12-17] MEDS ORDERED: ONDANSETRON 4 MG/2 ML VIAL IVP PRN (19:26)
[2024-12-17] MEDS ORDERED: NALOXONE 0.4 MG/ML 1 ML VIAL IV PRN (19:26)
[2024-12-17] MEDS ORDERED: MORPHINE SULFATE 4 MG/ML SYRINGE IV PRN (19:26)
[2024-12-17 19:43] LABS: Appearance,Urine Clear (Clear); Bilirubin,Urine Negative (Negative); Blood,Urine Negative (Negative); Color,Urine Yellow; Glucose,Urine (UA) Negative (Negative); Ketones,Urine 2+ (Negative); Leukocyte Esterase,Urine Negative (Negative); Nitrite,Urine Negative (Negative); Protein,Urine Trace (Negative); Urobilinogen,Urine <2.0 mg/dL (<2.0)
--- NOTE | 2024-12-17 19:54 | P.GSHP ---
History of Present Illness H&P Date: 12/17/24 Patient presented to the emergency department with complaint of significant abdominal pain that began yesterday and was quite severe overnight. She states that it caused bloating and vomiting. She states that the pain is mostly in the lower portion of her abdomen. She states that the pain comes and goes in waves. She states that she did have bowel movement yesterday with no blood and soft in nature. She is up-to-date on colonoscopy. Denies any fevers, chills, chest pain or shortness of breath. CT of the abdomen and pelvis was performed with significant dilation of the colon with concern of mesenteric swirling, edema and cecal volvulus. Patient denies any previous abdominal surgery. - Review of Systems All systems: negative Past Medical History Past Medical History: Hyperlipidemia History of Any Multi-Drug Resistant Organisms: None Reported Past Surgical History: Joint Replacement Additional Past Surgical History / Comment(s): hip Past Psychological History: No Psychological Hx Reported Smoking Status: Never smoker Past Alcohol Use History: Occasional Past Drug Use History: None Reported Medications and Allergies Home Medications Medication Instructions Recorded Confirmed Type Alendronate Sodium [Fosamax] 70 mg PO SMALLWOOD 12/17/24 12/17/24 History Atorvastatin [Lipitor] 10 mg PO DAILY 12/17/24 12/17/24 History Meloxicam [Mobic] 7.5 mg PO BID 12/17/24 12/17/24 History Allergies Allergy/AdvReac Type Severity Reaction Status Date / Time sulfamethoxazole Allergy Rash/Hives Verified 12/17/24 18:33 [From Bactrim] on belly trimethoprim [From Bactrim] Allergy Rash/Hives Verified 12/17/24 18:33 on belly Surgical - Exam Osteopathic Statement: *. No significant issues noted on an osteopathic structural exam other than those noted in the History and Physical/Consult. Vital Signs Temp Pulse Resp BP Pulse Ox 97.8 F 68 17 153/83 96 12/17/24 16:40 12/17/24 16:40 12/17/24 16:40 12/17/24 16:40 12/17/24 16:40 - General well nourished, no distress - Eyes normal ocular movement - ENT normal mucosa, no hearing loss - Neck trachea midline - Abdomen Abdomen: soft, tender, no guarding, no rebound, distended - Neurologic normal coordination, normal sensation - Psychiatric oriented to time, oriented to person, oriented to place Results - Labs 12/17/24 17:28 12/17/24 17: Abnormal Lab Results - Last 24 Hours (Table) 12/17/24 12/17/24 Range/Units 17: 17: Lymphocytes # 0.8 L (1.0-4.8) k/uL BUN 25 H (7-17) mg/dL Glucose 122 H (74-99) mg/dL Diabetes panel 12/17/24 Range/Units 17:28 Sodium 137 (137-145) mmol/L Potassium 3.6 (3.5-5.1) mmol/L Chloride 101 (98-107) mmol/L Carbon Dioxide 25 (22-30) mmol/L BUN 25 H (7-17) mg/dL Creatinine 0.60 (0.52-1.04) mg/dL Glucose 122 H (74-99) mg/dL Calcium 9.7 (8.4-10.2) mg/dL AST 31 (14-36) U/L ALT 30 (4-34) U/L Alkaline Phosphatase 55 (38-126) U/L Total Protein 7.4 (6.3-8.2) g/dL Albumin 4.8 (3.5-5.0) g/dL Calcium panel 12/17/24 Range/Units 17: Calcium 9.7 (8.4-10.2) mg/dL Albumin 4.8 (3.5-5.0) g/dL Pituitary panel 12/17/24 Range/Units 17:28 Sodium 137 (137-145) mmol/L Potassium 3.6 (3.5-5.1) mmol/L Chloride 101 (98-107) mmol/L Carbon Dioxide 25 (22-30) mmol/L BUN 25 H (7-17) mg/dL Creatinine 0.60 (0.52-1.04) mg/dL Glucose 122 H (74-99) mg/dL Calcium 9.7 (8.4-10.2) mg/dL Adrenal panel 12/17/24 Range/Units 17:28 Sodium 137 (137-145) mmol/L Potassium 3.6 (3.5-5.1) mmol/L Chloride 101 (98-107) mmol/L Carbon Dioxide 25 (22-30) mmol/L BUN 25 H (7-17) mg/dL Creatinine 0.60 (0.52-1.04) mg/dL Glucose 122 H (74-99) mg/dL Calcium 9.7 (8.4-10.2) mg/dL Total Bilirubin 0.6 (0.2-1.3) mg/dL AST 31 (14-36) U/L ALT 30 (4-34) U/L Alkaline Phosphatase 55 (38-126) U/L Total Protein 7.4 (6.3-8.2) g/dL Albumin 4.8 (3.5-5.0) g/dL Assessment and Plan Plan: 64-year-old female with concern for cecal volvulus. Currently, patient states that she is continuing to have waves of pain. Currently, no leukocytosis or lactic acidosis. No pneumo peritoneum noted on CT. Case was discussed in depth with the patient. With recurrent waves of severe pain and finding of cecal volvulus, patient is opting for surgical intervention. Plan is for exploratory laparotomy and bowel resection. Patient is aware that ostomy placement is a possibility after this procedure. All risks, benefits and alternatives were pro vided at bedside. All questions answered. Further recommendations after surgical intervention. Medical consult placed.
[2024-12-17 19:56] LABS: Specific Gravity,Urine >1.050 (1.001-1.035)
[2024-12-17] MEDS ORDERED: GLYCOPYRROLATE 0.2 MG/ML 2 ML VIAL ONE (20:22)
[2024-12-17] MEDS ORDERED: SUCCINYLCHOLINE CHLORIDE 200 MG/10 ML VIAL IV ONE (20:22)
[2024-12-17] MEDS: LACTATED RINGERS 1,000 ML IV ONE ×2 (20:22→21:24)
[2024-12-17] MEDS: SODIUM CHLORIDE 0.9% 100 ML with ceFAZolin 2,000 MG IV ONE (20:22)
[2024-12-17] MEDS ORDERED: MIDAZOLAM 2 MG/2 ML VIAL ONE (20:22)
[2024-12-17] MEDS ORDERED: KETAMINE HCL IN 0.9 % NACL 50 MG/5 ML SYRINGE ONE (20:22)
[2024-12-17] MEDS ORDERED: ROCURONIUM 10 MG/ML (5 ML VIAL) IV ONE (20:22)
[2024-12-17] MEDS ORDERED: fentaNYL (PF) 50 MCG/ML 2 ML AMP ONE (20:22)
[2024-12-17] MEDS ORDERED: LIDOCAINE 1% INJ 10MG/ML (20 ML MDV) ONE (20:22)
[2024-12-17] MEDS ORDERED: PROPOFOL 10 MG/ML 20 ML VIAL IV ONE (20:22)
[2024-12-17] MEDS ORDERED: NEOSTIGMINE 1 MG/ML 10 ML VIAL ONE (20:22)
--- NOTE | 2024-12-17 21:36 | P.OP ---
Date of Procedure: 12/17/24 Preoperative Diagnosis: Cecal volvulus Postoperative Diagnosis: Cecal volvulus Procedure(s) Performed: Exploratory laparotomy Ileocecectomy Anesthesia: BRAYDEN Surgeon: Sharron Mao Pathology: other (Cecum) Condition: stable Disposition: floor Indications for Procedure: 64-year-old female presented with 1 day of abdominal pain and abdominal distention. On workup she is found to have concern for cecal volvulus. No current pneumoperitoneum or signs of perforation. Plan is for exploratory laparotomy and case was discussed in depth with patient. Risks, benefits and alternatives were provided to patient. All questions answered. Operative Findings: Cecal volvulus noted in right lower quadrant Description of Procedure: Patient was brought to the operative suite and placed in supine position on the operative table. Sedation was provided anesthesia patient underwent endotracheal intubation. Patient was then prepped and draped in regular sterile fashion. Midline incision was made and dissection was carried to the fascia. The fascia was incised along the length of the incision and the abdomen was entered. Immediately, significantly distended colon was noted in the right lower quadrant and this was eviscerated from the abdomen. It was noted to be torsed and volvulized around the mesentery. The bowel appeared to be slightly ischemic at this site. Both distal and proximal ends of the bowel were noted to be decompressed. At this point, decision was made to perform ileocecectomy as there was appropriate landing zone for anastomosis. Right colon was taken down from white line of Toldt to provide less tension. Both proximal and distal ends of resection were delineated and stapler was fired down both the right colon and the distal ileum. LigaSure device was used to ligate the torsed bowel from the mesentery. At this point, decision was made to create an anastomosis as both proximal and distal ends were decompressed without any signs of ischemia. Enterotomy and colotomy were created and stapler was fired to create an a nastomosis. This was done with a JOANN 75 mm blue load stapler. Resulting bowel defect was closed with a TX 60 blue load stapler. The staple line was then imbricated with interrupted 3-0 Vicryl Lembert sutures. Hemostasis was noted to be maintained. No obvious air leak was noted after placing the anastomosis under fluid. No air bubbles were noted. Copious months irrigation was then placed in the abdomen and suctioned. Abdomen was then closed with looped PDS suture in running fashion along the fascia. Skin incision was then closed with skin monie. Sterile dressing was applied. The patient was awakened in the operating suite and taken to postanesthesia care unit in stable condition with nasogastric tube and Warner catheter in place. Sponge and instrument count were correct x 2.
[2024-12-17] MEDS ORDERED: HYDROmorphone 0.5 MG/0.5 ML SYRINGE IVP PRN (21:38)
[2024-12-17] MEDS: LACTATED RINGERS 1,000 ML IV SCH (23:02)
[2024-12-18] MEDS: KETOROLAC 15 MG/ML 1 ML VIAL IVP PRN (04:34)
[2024-12-18 08:18] LABS: Basophils # (A) 0.03 X 10*3/uL (0.00-0.10); Basophils % (A) 0.3 %; Eosinophils # (A) 0.02 X 10*3/uL (0.04-0.35); Eosinophils % (A) 0.2 %; HCT 35.8 % (37.2-46.3); HGB 12.1 g/dL (12.0-15.0); Lymphocytes # (A) 0.52 X 10*3/uL (0.90-5.00); Lymphocytes % (A) 4.9 %; MCH 30.2 pg (27.0-32.0); MCHC 33.8 g/dL (32.0-37.0); MCV 89.3 FL (80.0-97.0); Mean Platelet Volume 9.6 FL (9.5-12.2); Monocytes # (A) 0.72 X 10*3/uL (0.20-1.00); Monocytes % (A) 6.8 %; NRBC Per 100 WBC 0 X 10*3/uL (0.00-0.01); Neutrophils % (A) 87.5 %; Platelet Count 210 X 10*3/uL (140-440); RBC 4.01 X 10*6/uL (4.10-5.20); RDW 13.9 % (11.5-14.5); WBC 10.52 X 10*3/uL (4.50-10.00)
[2024-12-18 08:39] LABS: ALT 21 U/L (8-44); AST 23 U/L (13-35); Albumin 3.6 g/dL (3.8-4.9); Albumin/Globulin Ratio 1.89 Ratio (1.60-3.17); Alkaline Phosphatase 43 U/L (41-126); BUN/Creat Ratio 31.33 Ratio (12.00-20.00); Blood Urea Nitrogen 18.8 mg/dL (9.0-27.0); Calcium 8.5 mg/dL (8.7-10.3); Carbon Dioxide 24.9 mmol/L (21.6-31.8); Chloride 106 mmol/L (96-109); Globulin 1.9 g/dL (1.6-3.3); Glucose 113 mg/dL (70-110); Sodium 141 mmol/L (135-145); Total Bilirubin 0.3 mg/dL (0.3-1.2); Total Protein 5.5 g/dL (6.2-8.2)
--- NOTE | 2024-12-18 13:00 | P.CONS ---
History of Present Illness - Reason for Consult Consult date: 12/18/24 Medical management - History of Present Illness History of present illness; patient is a 64-year-old lady with past medical history significant for hyperlipidemia presented the ER because of abdominal pain. Patient stated that she was all right last night when she started experiencing severe abdominal pain that was going on right lower quadrant, pain was continuous, sharp, nonradiating, no aggravating or relieving factor associated with abdominal pain. Patient was complaining of decreased appetite. Patient also having nausea and vomiting. There was no complaint of fever or chills. There was no complaint of chest pain. Patient denies any shortness of breath. Patient denies any orthopnea or PND. 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 Patient admitted to surgery and was taken for exploratory laparotomy. Internal medicine team were consulted for medical management REVIEW OF SYSTEMS: CONSTITUTIONAL: No fever, no malaise, no fatigue. HEENT: No recent visual problems or hearing problems. Denied any sore throat. CARDIOVASCULAR: No chest pain, orthopnea, PND, no palpitations, no syncope. PULMONARY: No shortness of breath, no cough, no hemoptysis. GASTROINTESTINAL: As mentioned above g, no abdominal pain. NEUROLOGICAL: No headaches, no weakness, no numbness. HEMATOLOGICAL: Denies any bleeding or petechiae. GENITOURINARY: Denies any burning micturition, frequency, or urgency. MUSCULOSKELETAL/RHEUMATOLOGICAL: Denies any joint pain, swelling, or any muscle pain. ENDOCRINE: Denies any polyuria or polydipsia. The rest of the 14-point review of systems is negative. PHYSICAL EXAMINATION: GENERAL: The patient is alert and oriented x3, not in any acute distress. Well developed, well nourished. HEENT: Pupils are round and equally reacting to light. EOMI. No scleral icterus. No conjunctival pallor. Normocephalic, atraumatic. No pharyngeal erythema. No thyromegaly. CARDIOVASCULAR: S1 and S2 present. No murmurs, rubs, or gallops. PULMONARY: Chest is clear to auscultation, no wheezing or crackles. ABDOMEN: Tenderness right lower quadrant, laparotomy surgical incisions seen MUSCULOSKELETAL: No joint swelling or deformity. EXTREMITIES: No cyanosis, clubbing, or pedal edema. NEUROLOGICAL: Gross neurological examination did not reveal any focal deficits. SKIN: No rashes. 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 Continue IV fluids Continue pain management Resume home meds Labs and medication were reviewed.. Continue same treatment. Continue with symptomatic treatment. Resume home medication. Monitor labs and vitals. DVT and GI prophylaxis. Further recommendations as per clinical course of the pat ient Dictation was produced using [employer] dictation software. please excuse any grammatical, word or spelling errors. Past Medical History Past Medical History: Hyperlipidemia History of Any Multi-Drug Resistant Organisms: None Reported Past Surgical History: Joint Replacement Additional Past Surgical History / Comment(s): hip Past Psychological History: No Psychological Hx Reported Smoking Status: Never smoker Past Alcohol Use History: Occasional Past Drug Use History: None Reported Medications and Allergies Home Medications Medication Instructions Recorded Confirmed Type Alendronate Sodium [Fosamax] 70 mg PO SMALLWOOD 12/17/24 12/17/24 History Atorvastatin [Lipitor] 10 mg PO DAILY 12/17/24 12/17/24 History Meloxicam [Mobic] 7.5 mg PO BID 12/17/24 12/17/24 History Allergies Allergy/AdvReac Type Severity Reaction Status Date / Time sulfamethoxazole Allergy Rash/Hives Verified 12/17/24 18:33 [From Bactrim] on belly trimethoprim [From Bactrim] Allergy Rash/Hives Verified 12/17/24 18:33 on belly Physical Exam Vitals: Vital Signs Temp Pulse Pulse Resp BP BP Pulse Ox 12/18/24 07:40 98.2 F 88 16 99/59 94 L 12/18/24 01:38 82 126/71 95 12/18/24 01:35 80 134/74 96 12/17/24 23:59 71 111/66 97 12/17/24 23:44 75 116/69 96 12/17/24 23:29 80 126/71 95 12/17/24 23:14 84 142/73 95 12/17/24 23:00 89 141/75 96 12/17/24 22:30 88 103/73 95 12/17/24 22:22 85 134/74 98 12/17/24 22:08 82 14 140/72 96 12/17/24 21:53 85 16 165/69 98 12/17/24 21:38 97.0 F L 84 16 121/77 96 12/17/24 19:24 79 17 140/69 98 12/17/24 16:40 97.8 F 68 17 153/83 96 Intake and Output 12/17/24 12/18/24 12/18/24 22:59 06:59 14:59 Intake Total 1700 Output Total 164 200 Balance 1536 -200 Intake: IV 1700 Output: Gastric Drainage 200 Urine 150 Estimated Blood Loss 14 Other: Voiding Method Indwelling Catheter Weight 65.771 kg Results CBC & Chem 7: 12/18/24 03:59 12/18/24 03:59 Labs: Abnormal Lab Results - Last 24 Hours (Table) 12/17/24 12/17/24 12/17/24 Range/Units 17:28 17:28 19:29 WBC (4.50-10.00) X 10*3/uL RBC (4.10-5.20) X 10*6/uL Hct (37.2-46.3) % Neutrophils # (1.80-7.70) X 10*3/uL Lymphocytes # 0.8 L (1.0-4.8) k/uL Eosinophils # (0.04-0.35) X 10*3/uL BUN 25 H (7-17) mg/dL BUN/Creatinine Ratio (12.00-20.00) Ratio Glucose 122 H (74-99) mg/dL Calcium (8.7-10.3) mg/dL Total Protein (6.2-8.2) g/dL Albumin (3.8-4.9) g/dL Ur Specific [place] >1.050 H (1.001-1.035) Urine Protein Trace H (Negative) Urine Ketones 2+ H (Negative) 12/18/24 12/18/24 Range/Units 03:59 03:59 WBC 10.52 H (4.50-10.00) X 10*3/uL RBC 4.01 L (4.10-5.20) X 10*6/uL Hct 35.8 L (37.2-46.3) % Neutrophils # 9.20 H (1.80-7.70) X 10*3/uL Lymphocytes # 0.52 L (1.0-4.8) k/uL Eosinophils # 0.02 L (0.04-0.35) X 10*3/uL BUN (7-17) mg/dL BUN/Creatinine Ratio 31.33 H (12.00-20.00) Ratio Glucose 113 H (74-99) mg/dL Calcium 8.5 L (8.7-10.3) mg/dL Total Protein 5.5 L (6.2-8.2) g/dL Albumin 3.6 L (3.8-4.9) g/dL Ur Specific [place] (1.001-1.035) Urine Protein (Negative) Urine Ketones (Negative)
--- NOTE | 2024-12-18 13:07 | P.PN ---
Subjective Progress Note Date: 12/18/24 SURGICAL PROGRESS NOTE CHIEF COMPLAINT: Cecal volvulus HISTORY OF PRESENT ILLNESS: Postop day #1 status post exploratory laparotomy and ileocecectomy. Patient reports her pain is controlled. She denies any nausea. She has passed small amount of flatus. She has NG tube in place with 200 mL output. Afebrile. WBC 10.52 PHYSICAL EXAM: VITAL SIGNS: Reviewed. GENERAL: Well-developed in no acute distress. HEENT: No sclera icterus. Extraocular movements grossly intact. Moist buccal mucosa. Head is atraumatic, normocephalic. ABDOMEN: Soft. Nondistended. Mild tenderness at incision site. Incisional dressing with small amount of blood noted. NG tube in place. NEUROLOGIC: Alert and oriented. Cranial nerves II through XII grossly intact. ASSESSMENT: 1. Cecal volvulus PLAN: -Continue NG tube for decompression -Keep patient n.p.o. except for ice chips -Continue IV fluids -Discontinue Warner catheter -medicine service consulted for medical management -Repeat labs in a.m. 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 Signing provider agrees with the documented findings, assessment, and plan of care. Attestation Postoperative day #1, exploratory laparotomy and ileocecectomy. No bowel function as of yet. Continue nasogastric tube. Okay to remove Warner catheter. Patient can have ice chips. Continue IV fluids. Pain control. Increase acti vity as tolerated. Use incentive spirometer. Sharron Mao, DO Objective - Vital Signs Vital signs: Vital Signs Temp 98.2 F 12/18/24 07:40 Pulse 88 12/18/24 07:40 Resp 16 12/18/24 07:40 BP 99/59 12/18/24 07:40 Pulse Ox 94 L 12/18/24 07:40 FiO2 Intake & Output 12/17/24 12/18/24 12/18/24 18:59 06:59 18:59 Intake Total 1700 Output Total 364 Balance 1336 Weight 65.771 kg 65.771 kg Intake: IV 1700 Output: Gastric Drainage 200 Urine 150 Estimated Blood Loss 14 Other: Voiding Method Indwelling Catheter Indwelling Catheter - Labs CBC & Chem 7: 12/18/24 03:59 03/19/25 03:59 Labs: Abnormal Lab Results - Last 24 Hours (Table) 12/17/24 12/17/24 12/17/24 Range/Units 17:28 17:28 19:29 WBC (4.50-10.00) X 10*3/uL RBC (4.10-5.20) X 10*6/uL Hct (37.2-46.3) % Neutrophils # (1.80-7.70) X 10*3/uL Lymphocytes # 0.8 L (1.0-4.8) k/uL Eosinophils # (0.04-0.35) X 10*3/uL BUN 25 H (7-17) mg/dL BUN/Creatinine Ratio (12.00-20.00) Ratio Glucose 122 H (74-99) mg/dL Calcium (8.7-10.3) mg/dL Total Protein (6.2-8.2) g/dL Albumin (3.8-4.9) g/dL Ur Specific [place] >1.050 H (1.001-1.035) Urine Protein Trace H (Negative) Urine Ketones 2+ H (Negative) 12/18/24 12/18/24 Range/Units 03:59 03:59 WBC 10.52 H (4.50-10.00) X 10*3/uL RBC 4.01 L (4.10-5.20) X 10*6/uL Hct 35.8 L (37.2-46.3) % Neutrophils # 9.20 H (1.80-7.70) X 10*3/uL Lymphocytes # 0.52 L (1.0-4.8) k/uL Eosinophils # 0.02 L (0.04-0.35) X 10*3/uL BUN (7-17) mg/dL BUN/Creatinine Ratio 31.33 H (12.00-20.00) Ratio Glucose 113 H (74-99) mg/dL Calcium 8.5 L (8.7-10.3) mg/dL Total Protein 5.5 L (6.2-8.2) g/dL Albumin 3.6 L (3.8-4.9) g/dL Ur Specific [place] (1.001-1.035) Urine Protein (Negative) Urine Ketones (Negative)
[2024-12-18] MEDS: FAMOTIDINE 20 MG/2 ML VIAL IV SCH (14:30)
--- NOTE | 2024-12-18 18:12 | XR ---
EXAMINATION TYPE: XR chest 1V DATE OF EXAM: 12/18/2024 5:59 PM COMPARISON: CT abdomen/pelvis 12/17/2024. CLINICAL INDICATION: Female, 64 years old with history of Confirm NG tube placement; [facility] TECHNIQUE: XR chest 1V Frontal view of the chest. FINDINGS: Cardiac silhouette is within normal limits for size. No acute focal consolidation. No pleural effusio n or pneumothorax. Enteric tube and abnormal positioning with distal sidehole and tip coiled near the distal esophagus/G E junction. There is free air beneath the hemidiaphragms. IMPRESSION: 1. No acute cardiopulmonary disease/process. 2. Free air beneath the hemidiaphragms suggestive of pneumoperitoneum. In the absence of recent surg felipe, this finding would be highly concerning for perforated bowel. Recommend clinical correlation. 3. Enteric tube and abnormal positioning as described above. [facility], , 12/18/2024 6:10 PM
[2024-12-18] MEDS: BENZOCAINE SPRAY 1 EACH MUCOUS MEM PRN (20:37)
[2024-12-19 06:19] LABS: Basophils % (A) 0 %; Eosinophils # (A) 0.1 k/uL (0-0.7); Eosinophils % (A) 1 %; Lymphocytes # (A) 0.7 k/uL (1.0-4.8); Lymphocytes % (A) 7 %; MCH 30.7 pg (25.0-35.0); MCHC 34.5 g/dL (31.0-37.0); Mean Platelet Volume 6.9; Monocytes # (A) 0.5 k/uL (0-1.0); Monocytes % (A) 6 %; Neutrophils # (A) 7.9 k/uL (1.3-7.7); Neutrophils % (A) 85 %; Platelet Count 170 k/uL (150-450); RBC 3.37 m/uL (3.80-5.40); RDW 13.5 % (11.5-15.5); WBC 9.3 k/uL (3.8-10.6)
[2024-12-19 06:36] LABS: African American GFR (CKD) >90 (>60 ml/min/1.73 sqM); Anion Gap 6 mmol/L; Blood Urea Nitrogen 22 mg/dL (7-17); Calcium 8.4 mg/dL (8.4-10.2); Carbon Dioxide 25 mmol/L (22-30); Chloride 105 mmol/L (98-107); Glucose 91 mg/dL (74-99); Non-African American GFR(CKD) >90 (>60 ml/min/1.73 sqM); Potassium 3.8 mmol/L (3.5-5.1); Sodium 136 mmol/L (137-145)
[2024-12-19 06:49] LABS: HGB 10.4 gm/dL (11.4-16.0)
--- NOTE | 2024-12-19 12:25 | P.PN ---
Subjective Progress Note Date: 12/19/24 SURGICAL PROGRESS NOTE CHIEF COMPLAINT: Cecal volvulus HISTORY OF PRESENT ILLNESS: Postop day #2 status post exploratory laparotomy and ileocecectomy. Patient reports her pain is controlled. She reports having a lot of flatus. No bowel movement. Denies any nausea. NG tube output with 100 mL through the night patient has been eating ice chips. Afebrile. WBC is down from 10.5-9.3 PHYSICAL EXAM: VITAL SIGNS: Reviewed. GENERAL: Well-developed in no acute distress. HEENT: No sclera icterus. Extraocular movements grossly intact. Moist buccal mucosa. Head is atraumatic, normocephalic. ABDOMEN: Soft. Mildly distended. Mild tenderness at incision site. Incisional dressing with small amount of blood noted. NG tube in place. NEUROLOGIC: Alert and oriented. Cranial nerves II through XII grossly intact. ASSESSMENT: 1. 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 Signing provider agrees with the documented findings, assessment, and plan of care... Attestation Patient seen and examined at bedside on 12/19/2024. Postop day #2, exploratory laparotomy and ileocecectomy. Patient beginning to have some bowel function with flatus. Will discontinue nasogastric tube and start clear liquid diet. Encouraged increased activity. Continue with pain control. Sharron Crowa, DO Objective - Vital Signs Vital signs: Vital Signs Temp 98.7 F 12/19/24 07:15 Pulse 92 12/19/24 07:15 Resp 19 12/19/24 07:15 BP 123/71 12/19/24 07:15 Pulse Ox 95 12/19/24 07:15 FiO2 Intake & Output 12/18/24 12/19/24 12/19/24 18:59 06:59 18:59 Output Total 100 Balance -100 Output: Gastric Drainage 100 Other: Voiding Method Indwelling Catheter Toilet # Voids 1 - Labs CBC & Chem 7: 12/20/24 08:49 12/19/24 05:47 Labs: Abnormal Lab Results - Last 24 Hours (Table) 12/19/24 12/19/24 Range/Units 05:47 05:47 RBC 3.37 L (3.80-5.40) m/uL Hgb 10.4 L D (11.4-16.0) gm/dL Hct 30.0 L (34.0-46.0) % Neutrophils # 7.9 H (1.3-7.7) k/uL Lymphocytes # 0.7 L (1.0-4.8) k/uL Sodium 136 L (137-145) mmol/L BUN 22 H (7-17) mg/dL Creatinine 0.49 L (0.52-1.04) mg/dL
--- NOTE | 2024-12-19 14:10 | P.PN ---
Subjective Progress Note Date: 12/19/24 patient is a 64-year-old lady with past medical history significant for hyperlipidemia presented the ER because of abdominal pain. Patient stated that she was all right last night when she started experiencing severe abdominal pain that was going on right lower quadrant, pain was continuous, sharp, nonra diating, no aggravating or relieving factor associated with abdominal pain. Patient was complaining of decreased appetite. Patient also having nausea and vomiting. There was no complaint of fever or chills. There was no complaint of chest pain. Patient denies any shortness of breath. Patient denies any orthopnea or PND. 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 Patient admitted to surgery and was taken for exploratory laparotomy. Internal medicine team were consulted for medical management 12/19. Patient seen and examined. Denies any abdominal pain. Patient is passing gas. Patient keen to get NG tube out. Vital signs stable REVIEW OF SYSTEMS: CONSTITUTIONAL: No fever, no malaise,. CARDIOVASCULAR: No chest pain, no palpitations, no syncope. PULMONARY: No shortness of breath, no cough, GASTROINTESTINAL: No diarrhea, no nausea, no vomitingn. NEUROLOGICAL: No headaches, no weakness, PHYSICAL EXAMINATION: GENERAL: The patient is alert and oriented x3, not in any acute distress. Well developed, well nourished. HEENT: Pupils are round and equally reacting to light. EOMI. No scleral icterus. No conjunctival pallor. Normocephalic, atraumatic. No pharyngeal erythema. No thyromegaly. CARDIOVASCULAR: S1 and S2 present. No murmurs, rubs, or gallops. PULMONARY: Chest is clear to auscultation, no wheezing or crackles. ABDOMEN: Tenderness right lower quadrant, laparotomy surgical incisions seen MUSCULOSKELETAL: No joint swelling or deformity. EXTREMITIES: No cyanosis, clubbing, or pedal edema. NEUROLOGICAL: Gross neurological examination did not reveal any focal deficits. SKIN: No rashes. 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 Continue same treatment. Continue with symptomatic treatment. Resume home medication. Monitor labs and vitals. DVT and GI prophylaxis. Further recommendations as per clinical course of the patient Dictation was produced using [employer] dictation software. please excuse any grammatical, word or spelling errors. Objective - Vital Signs Vital signs: Vital Signs Temp 98.7 F 12/19/24 07:15 Pulse 92 12/19/24 07:15 Resp 19 12/19/24 07:15 BP 123/71 12/19/24 07:15 Pulse Ox 95 12/19/24 07:15 FiO2 Intake & Output 12/18/24 12/19/24 12/19/24 18:59 06:59 18:59 Output Total 100 Balance -100 Output: Gastric Drainage 100 Other: Voiding Method Indwelling Catheter Toilet # Voids 1 - Labs CBC & Chem 7: 12/19/24 05:47 12/19/24 05:47 Labs: Abnormal Lab Results - Last 24 Hours (Table) 12/19/24 12/19/24 Range/Units 05:47 05:47 RBC 3.37 L (3.80-5.40) m/uL Hgb 10.4 L D (11.4-16.0) gm/dL Hct 30.0 L (34.0-46.0) % Neutrophils # 7.9 H (1.3-7.7) k/uL Lymphocytes # 0.7 L (1.0-4.8) k/uL Sodium 136 L (137-145) mmol/L BUN 22 H (7-17) mg/dL Creatinine 0.49 L (0.52-1.04) mg/dL
[2024-12-20] MEDS ORDERED: HYDROcodone/APAP 5-325MG 1 EACH TAB PO PRN (08:27)
[2024-12-20 09:05] LABS: Basophils % (A) 0 %; Eosinophils # (A) 0.3 k/uL (0-0.7); Eosinophils % (A) 4 %; HGB 10.5 gm/dL (11.4-16.0); Lymphocytes # (A) 0.6 k/uL (1.0-4.8); Lymphocytes % (A) 9 %; MCH 29.5 pg (25.0-35.0); MCV 89.4 fL (80.0-100.0); Mean Platelet Volume 7.2; Monocytes # (A) 0.3 k/uL (0-1.0); Monocytes % (A) 5 %; Neutrophils # (A) 5.2 k/uL (1.3-7.7); Neutrophils % (A) 81 %; Platelet Count 201 k/uL (150-450); RBC 3.57 m/uL (3.80-5.40); RDW 13.2 % (11.5-15.5); WBC 6.4 k/uL (3.8-10.6)
--- NOTE | 2024-12-20 10:11 | P.PN ---
Subjective Patient seen and evaluated at bedside. Patient doing well, admits to abdominal soreness but is able to tolerate movement, clear liquid diet. Patient is having bowel movements and passing flatus. Objective - Vital Signs Vital signs: Vital Signs Temp 98.4 F 12/20/24 00:20 Pulse 87 12/20/24 00:20 Resp 16 12/20/24 00:20 BP 120/72 12/20/24 00:20 Pulse Ox 95 12/20/24 00:20 FiO2 Intake & Output 12/19/24 12/20/24 12/20/24 18:59 06:59 18:59 Other: Voiding Method Toilet # Voids 3 1 # Bowel Movements 1 - Exam gen: nad cv: rrr pul: non labored breathing abd: soft, non distended, dressing c/d/i - Labs CBC & Chem 7: 12/20/24 08:49 12/19/24 05:47 Labs: Abnormal Lab Results - Last 24 Hours (Table) 12/20/24 Range/Units 08:49 RBC 3.57 L (3.80-5.40) m/uL Hgb 10.5 L (11.4-16.0) gm/dL Hct 32.0 L (34.0-46.0) % Lymphocytes # 0.6 L (1.0-4.8) k/uL Assessment and Plan Assessment: 1. Cecal volvulus PLAN: -advance diet to soft diet -Encourage patient to ambulate -Encourage patient to use incentive spirometer -DVT prophylaxis subcu heparin -discharge planning, likely tomorrow 12/20 Time with Patient: Less than 30
--- NOTE | 2024-12-20 13:10 | P.PN ---
Subjective Progress Note Date: 12/20/24 patient is a 64-year-old lady with past medical history significant for hyperlipidemia presented the ER because of abdominal pain. Patient stated that she was all right last night when she started experiencing severe abdominal pain that was going on right lower quadrant, pain was continuous, sharp, nonra diating, no aggravating or relieving factor associated with abdominal pain. Patient was complaining of decreased appetite. Patient also having nausea and vomiting. There was no complaint of fever or chills. There was no complaint of chest pain. Patient denies any shortness of breath. Patient denies any orthopnea or PND. 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 Patient admitted to surgery and was taken for exploratory laparotomy. Internal medicine team were consulted for medical management 12/19. Patient seen and examined. Denies any abdominal pain. Patient is passing gas. Patient keen to get NG tube out. Vital signs stable 12/20. Patient seen and examined.Blood work done this morning showed WB 6.4, hemoglobin 8.5, platelet count 201. Currently clear liquid diet. Patient is passing gas and had bowel movement. Surgery plan to increase diet to regular REVIEW OF SYSTEMS: CONSTITUTIONAL: No fever, no malaise,. CARDIOVASCULAR: No chest pain, no palpitations, no syncope. PULMONARY: No shortness of breath, no cough, GASTROINTESTINAL: No diarrhea, no nausea, no vomitingn. NEUROLOGICAL: No headaches, no weakness, PHYSICAL EXAMINATION: GENERAL: The patient is alert and oriented x3, not in any acute distress. Well developed, well nourished. HEENT: Pupils are round and equally reacting to light. EOMI. No scleral icterus. No conjunctival pallor. Normocephalic, atraumatic. No pharyngeal erythema. No thyromegaly. CARDIOVASCULAR: S1 and S2 present. No murmurs, rubs, or gallops. PULMONARY: Chest is clear to auscultation, no wheezing or crackles. ABDOMEN: Tenderness right lower quadrant, laparotomy surgical incisions seen MUSCULOSKELETAL: No joint swelling or deformity. EXTREMITIES: No cyanosis, clubbing, or pedal edema. NEUROLOGICAL: Gross neurological examination did not reveal any focal deficits. SKIN: No rashes. 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 Continue same treatment. Continue with symptomatic treatment. Resume home medication. Monitor labs and vitals. DVT and GI prophylaxis. Further recommendations as per clinical course of the patient Dictation was produced using [employer] dictation software. please excuse any grammatical, word or spelling errors. Objective - Vital Signs Vital signs: Vital Signs Temp 98.4 F 12/20/24 00:20 Pulse 87 12/20/24 00:20 Resp 16 12/20/24 00:20 BP 120/72 12/20/24 00:20 Pulse Ox 95 12/20/24 00:20 FiO2 Intake & Output 12/19/24 12/20/24 12/20/24 18:59 06:59 18:59 Other: Voiding Method Toilet # Voids 3 1 # Bowel Movements 1 - Labs CBC & Chem 7: 12/20/24 08:49 12/19/24 05:47 Labs: Abnormal Lab Results - Last 24 Hours (Table) 12/20/24 Range/Units 08:49 RBC 3.57 L (3.80-5.40) m/uL Hgb 10.5 L (11.4-16.0) gm/dL Hct 32.0 L (34.0-46.0) % Lymphocytes # 0.6 L (1.0-4.8) k/uL
[2024-12-21] MEDS: ACETAMINOPHEN TAB 325 MG TAB PO PRN (00:51)
[2024-12-21] MEDS: ATORVASTATIN 10 MG TAB PO SCH (08:05)
[2024-12-21 10:20] VITALS: BP 98/61; PULSE 77; RESP 17; TEMP 97
--- NOTE | 2024-12-21 11:08 | P.DS ---
Providers Date of admission: 12/17/24 19:29 Expected date of discharge: 12/21/24 Attending physician: Sharron Mao DO Consults: 12/17/24 19:26 Consult Physician Routine Consulting Provider: Suzi Machado Consult Reason/Comments: medical management Do you want consulting provider notified?: Yes Primary care physician: Kat Wen Hospital Course: Patient was admitted for abdominal pain. CTAP demonstrated cecal volvulus. Patient was taken to the OR exploratory laparotomy and colectomy. Patient was observed for several days until she was tolerating diet, having bowel movements, and abdominal pain was controlled. Medicine was consulted for medical management. Patient will be discharge home in stable condition per conversation between myself and the patient. Patient Condition at Discharge: Good Plan - Discharge Summary Discharge Rx Participant: No New Discharge Prescriptions: No Action Meloxicam [Mobic] 7.5 mg PO BID Atorvastatin [Lipitor] 10 mg PO DAILY Alendronate Sodium [Fosamax] 70 mg PO SMALLWOOD Discharge Medication List Alendronate Sodium [Fosamax] 70 mg PO SMALLWOOD 12/17/24 [History] Atorvastatin [Lipitor] 10 mg PO DAILY 12/17/24 [History] Meloxicam [Mobic] 7.5 mg PO BID 12/17/24 [History] Follow up Appointment(s)/Referral(s): Kat Wen MD [Primary Care Provider] - 1-2 days Sharron Mao DO [Doctor of Osteopathic Medicine] - 2 Weeks Patient Instructions/Handouts: Colectomy Diet (DC) Activity/Diet/Wound Care/Special Instructions: ok to take showers existing pain meds are appropriate no heavy lifting x 2 weeks, no more than 20lbs Discharge Disposition: HOME SELF-CARE
--- NOTE | 2024-12-21 12:07 | P.PN ---
Subjective patient is a 64-year-old lady with past medical history significant for hyperlipidemia presented the ER because of abdominal pain. Patient stated that she was all right last night when she started experiencing severe abdominal pain that was going on right lower quadrant, pain was continuous, sharp, nonradiating, no aggravating or relieving factor associated with abdominal pain. Patient was complaining of decreased appetite. Patient also having nausea and vomiting. There was no complaint of fever or chills. There was no complaint of chest pain. Patient denies any shortness of breath. Patient denies any orthopnea or PND. 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 Patient admitted to surgery and was taken for exploratory laparotomy. Internal medicine team were consulted for medical management 12/19. Patient seen and examined. Denies any abdominal pain. Patient is passing gas. Patient keen to get NG tube out. Vital signs stable 12/20. Patient seen and examined.Blood work done this morning showed WB 6.4, hemoglobin 8.5, platelet count 201. Currently clear liquid diet. Patient is passing gas and had bowel movement. Surgery plan to increase diet to regular 12/21 I got a page from bedside nurse the patient already been discharged. He went to see the patient patient was already dressed up in her full clothes walking in her room freely and by herself with no assistance, patient reports improvement. She states she still have very mild abdominal discomfort but she denies any vomiting and she tolerates diet. She also does not complain from diarrhea or any problem with her bowel movement. Patient denies any other symptoms I instructed patient to follow-up with her PCP Dr. Wen in 1 week after discharge and she agrees All labs vitals and images were reviewed Objective - Vital Signs Vital signs: Vital Signs Temp 97 F L 12/21/24 08:47 Pulse 77 12/21/24 08:47 Resp 17 12/21/24 08:47 BP 98/61 12/21/24 08:47 Pulse Ox 99 12/21/24 08:47 FiO2 Intake & Output 12/20/24 12/21/24 12/21/24 18:59 06:59 18:59 Intake Total 1650 Balance 1650 Intake: Oral 1650 Other: Voiding Method Toilet Toilet # Voids 2 6 - Exam GENERAL: The patient is alert and oriented x3, not in any acute distress. Well developed, well nourished. HEENT: Pupils are round and equally reacting to light. EOMI. No scleral icterus. No conjunctival pallor. Normocephalic, atraumatic. No pharyngeal erythema. No thyromegaly. CARDIOVASCULAR: S1 and S2 present. No murmurs, rubs, or gallops. PULMONARY: Chest is clear to auscultation, no wheezing , no crackles. ABDOMEN: Soft, nontender, nondistended, normoactive bowel sounds. No palpable organomegaly. MUSCULOSKELETAL: No joint swelling or deformity. EXTREMITIES: No cyanosis, clubbing, or pedal edema. NEUROLOGICAL: Gross neurological examination did not reveal any focal deficits. SKIN: No rashes. no petechiae. 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 Wen in 1 week after discharge We encourage patient to follow-up with her surgeon as per recommendation Patient currently medically stable
--- NOTE | 2024-12-25 15:49 | CDI ---
Documentation Clarification Form Date: 12/25/2024 03:25:56 PM From: Zara Arthur RN, CCDS Email: [email or web address] Admit Date: 12/17/2024 07:29:00 PM Patient Name: Doris Allred Visit Number: [id number] Discharge Date: 12/21/2024 02:38:00 PM ATTENTION: The Clinical Documentation Specialists (CDI) and [facility] Coding Staff appreciate your assistance in clarifying documentation. Please respond to the clarification below the line at the bottom and electronically sign. The CDI & [facility] Coding staff will review the response and follow-up if needed. Please note: Queries are made part of the Legal Health Record. If you have any questions, please contact the author of this message via ITS. Doctor Sharron Mao The 12/17 procedure note indicated the bowel appeared to be slightly ischemic at the volvulus site. Additional clarification of the acuity of the condition is requested. History/Risk Factors: Patient presents with severe abdominal pain, nausea and vomiting. Admitted with cecal volvulus, s/p exploratory laparotomy and ileocecectomy. 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 12/17 Procedure note: "Immediately, significantly distended colon was noted in the right lower quadrant, and this was eviscerated from the abdomen. It was noted to be torsed and volvulized around the mesentery. The bowel appeared to be slightly ischemic at this site." Treatment: s/p exploratory laparotomy and ileocecectomy on 12/17 Can you please clarify the acuity of the ischemic bowel? [X ] Acute [ ] Sub-acute [ ] Chronic [ ] Other, please specify [ ] Unable to determine MTDD
== END 2024-12-21 14:38 | disposition home or self-care (01) | DRG 329 ==
LOC: EC 16:32 → 4SSUR 19:29
PROVIDERS: ADMIT Surgery; ATTEND Surgery
PROC: 0DTH0ZZ Resection of Cecum, Open Approach (ICD-10-PCS; principal; 2024-12-17 20:00)
DX: K56.2 Volvulus (principal); K55.059 Acute (reversible) ischemia of intestine, part and extent unspecified; Z79.1 Long term (current) use of non-steroidal anti-inflammatories (NSAID); Z79.899 Other long term (current) drug therapy; Z88.2 Allergy status to sulfonamides; Z88.8 Allergy status to other drugs, medicaments and biological substances
CPT/HCPCS: 36415; 71045; 74177; 80048; 80053; 81003; 82150; 83605; 83690; 85025; 88307; 96361; 96374; 96375; 99285